=== PATIENT | female | born 2000 | race Caucasian/White ===

== ENCOUNTER 2020-10-11 06:35 | Inpatient (IN) ==
[2020-10-11] MEDS ORDERED: D5 1/2 NS 1000 ML 1,000 ML IV ONE (06:38)
[2020-10-11] MEDS ORDERED: PITOCIN ONE ×2 (06:38→16:26)
[2020-10-11] MEDS ORDERED: BETADINE SOLN ONE (06:38)
[2020-10-11] MEDS ORDERED: D5 1/2 NS 1L W PITOCIN 20 UNITS/L 20 UNITS/1,000 ML BAG IV ONE (06:39)
[2020-10-11] MEDS ORDERED: D5LR 1L W PITOCIN 10 UNITS/L 10 UNITS/1,000 ML BAG IV ONE (06:39)
[2020-10-11] MEDS: D5 1/2 NS 1000 ML 1,000 ML IV SCH ×2 (06:50→17:32)
--- NOTE | 2020-10-11 07:07 | DR.OB ---
OB Quick Note - Assessment/Plan Assessment/Plan: L&D 10/11/20 at 7:00am S-No complaint. O-Afebrile,VSS XQO=631 with good LTV, +accel., no decel. CTX=none CVX=2cm/50%/-1/VTX AROM with clear fluid. IUPC and FSE placed. No genital lesions. A-IUP at 39 1/7 weeks for induction Rh- P-Begin pitocin induction Anticipate
[2020-10-11] MEDS ORDERED: PITOCIN IVP ONE (07:32)
[2020-10-11] MEDS ORDERED: REGLAN INJ 10 MG VIAL IVP PRN (07:32)
[2020-10-11] MEDS ORDERED: D5LR 1L W PITOCIN 10 UNITS/L 10 UNITS/1,000 ML BAG IV PRN (07:32)
[2020-10-11] MEDS ORDERED: PHENERGAN INJ 25 MG IM PRN (07:32)
[2020-10-11] MEDS ORDERED: MORPHINE SULFATE INJ 2 MG INJ IVP PRN (07:32)
[2020-10-11] MEDS ORDERED: NUBAIN INJ 200 MG VIAL MULTIDOSE IVP PRN (07:32)
[2020-10-11] MEDS ORDERED: STADOL INJ IVP PRN (07:33)
--- NOTE | 2020-10-11 12:05 | DR.OB ---
OB Quick Note - Assessment/Plan Assessment/Plan: L&D 10/11/20 at 12:03pm Pitocin=18mu/min. S-No complaint except CTX. O-Afebrile,VSS NYV=259 with good LTV, +accel, no decel. CTX=q 1 1/2 to 3 min., about 35-55mmHg CVX=2cm/75%/-1 A-IUP at 39 1/7 weeks for induction Rh- P-Cont. pitocin induction Anticipate
[2020-10-11] MEDS ORDERED: PEPCID 20 MG IV PREMIX* 20 MG/50 ML BAG IV ONE (15:20)
[2020-10-11] MEDS ORDERED: LR 1000 ML IV 1,000 ML IV ONE ×3 (15:20→16:43)
[2020-10-11] MEDS ORDERED: ANCEF 1 GRAM IV PREMIX* 2 G/100 ML BAG IV ONE (15:22)
[2020-10-11] MEDS ORDERED: BICITRA 30 ML PO ONE (15:22)
[2020-10-11] MEDS ORDERED: DILAUDID INJ ONE (15:51)
[2020-10-11] MEDS ORDERED: EPHEDRINE SULFATE INJ ONE (16:26)
[2020-10-11] MEDS ORDERED: ZOFRAN INJ 4 MG VIAL ONE ×2 (16:26→17:55)
[2020-10-11] MEDS ORDERED: TORADOL 30 MG VIAL ONE (16:26)
[2020-10-11] MEDS ORDERED: XYLOCAINE 2 % (PLAIN) ONE (16:26)
[2020-10-11] MEDS ORDERED: NEO-SYNEPHRINE INJ ONE (16:26)
[2020-10-11] MEDS ORDERED: MARCAINE SPINAL ONE (16:26)
[2020-10-11] MEDS ORDERED: DECADRON INJ ONE (16:26)
[2020-10-11] MEDS ORDERED: ZOFRAN INJ 4 MG VIAL IVP PRN (18:23)
[2020-10-11] MEDS ORDERED: PERCOCET TAB 5/325 MG PO PRN (18:23)
[2020-10-11] MEDS ORDERED: D5 1/2 NS 1000 ML 1,000 ML with PITOCIN 20 UNITS IV SCH ×2 (18:23)
[2020-10-11] MEDS ORDERED: TORADOL 30 MG VIAL IVP PRN (18:23)
[2020-10-11] MEDS ORDERED: ADACEL or BOOSTRIX TDaP VACCINE IM ONE (18:23)
[2020-10-11] MEDS ORDERED: NARCAN INJ IVP PRN (18:23)
[2020-10-11] MEDS ORDERED: BENADRYL INJ 50 MG VIAL IVP PRN (18:23)
[2020-10-11] MEDS ORDERED: HYPERRHO S/D (or RHOGAM) IM PRN (18:23)
[2020-10-12 05:19] LABS: HEMATOCRIT 36.6 % (36.0-47.0); HEMOGLOBIN 11.8 g/dL (12.0-16.0)
[2020-10-12] MEDS ORDERED: PERCOCET TAB 5/325 MG PO PRN (07:41)
[2020-10-12] MEDS: MYLICON TAB 80 MG CHEW PO PRN ×2 (08:57→21:07)
[2020-10-12] MEDS: PRENATAL PLUS PO SCH (08:57)
[2020-10-12] MEDS: COLACE CAP 100 MG PO SCH ×2 (14:30→21:07)
[2020-10-12] MEDS: BACTROBAN TOPICAL OINT TOP SCH ×2 (14:30→21:08)
[2020-10-12] MEDS: MOTRIN TAB 800 MG PO PRN ×2 (16:04→21:07)
[2020-10-12] MEDS ORDERED: ADACEL or BOOSTRIX TDaP VACCINE IM ONE (18:09)
[2020-10-13] MEDS: BACTROBAN TOPICAL OINT TOP SCH (05:50)
[2020-10-13] MEDS: PRENATAL PLUS PO SCH (08:12)
[2020-10-13] MEDS: MOTRIN TAB 800 MG PO PRN (08:13)
[2020-10-13] MEDS: COLACE CAP 100 MG PO SCH (08:14)
[2020-10-13 14:37] VITALS: BP 141/84
== END 2020-10-13 14:00 | disposition home or self-care (01) | DRG 787 ==
LOC: EDBD 06:35 → LD 06:35 → MED/SURG 18:46
PROVIDERS: ADMIT Specialist; ATTEND Specialist
DX: Z3A.39 39 weeks gestation of pregnancy; Z87.42 Personal history of other diseases of the female genital tract; O62.0 Primary inadequate contractions; Z37.0 Single live birth; O36.0930 Maternal care for other rhesus isoimmunization, third trimester, not applicable or unspecified; Z01.818 Encounter for other preprocedural examination